=== PATIENT | male | born 1980 | race Caucasian/White ===

== ENCOUNTER 2023-10-03 07:34 | Emergency (ER) | payer OTHER, SELFPAY ==
[2023-10-03 07:40] VITALS: BP 119/83
--- NOTE | 2023-10-03 07:58 | ED.GENMED ---
History of Present Illness
General
Chief Complaint: Ear Problem
Source: patient
Exam Limitations: none
Time Seen by Provider: 10/03/23 07:45
History of Present Illness
History of Present Illness:
43-year-old otherwise healthy male presents complaining of right ear discomfort and swelling. He had it start about 10 days ago and it went away on its own his left ear started hurting but that went away however 3 to 4 days ago the right ear
started hurting and got more swollen and painful. He swims a lot. He denies a fever. He is not a diabetic. He states he had mastoiditis as a child. No other complaints at this time
Phy Exam
Physical Exam
Physical Exam:
General: Well-appearing male no acute respiratory distress
HEENT: Normocephalic atraumatic neck is supple no trismus or drooling posterior pharynx without erythema. Right external auditory canal erythematous and swollen mainly at the external meatus. As the canal gets closer to his tympanic membrane the
canal normalizes and TM is normal. The mastoid is nontender. There is mild adenopathy inferior to the right ear. The right ear itself is slightly swollen.
Heart: Regular rate and rhythm no murmurs
Lungs: Clear no wheeze or rales
Extremities: No cyanosis or edema
Course
Vital Signs
Initial and Last Documented VS:
Initial Vital Signs
Temp Pulse Resp BP Pulse Ox
97.7 F 85 16 119/83 98
10/03/23 07:40 10/03/23 07:40 10/03/23 07:40 10/03/23 07:40 10/03/23 07:40
Last Documented Vital Signs
Temp Pulse Resp BP Pulse Ox
97.7 F 85 16 119/83 98
10/03/23 07:40 10/03/23 07:40 10/03/23 07:40 10/03/23 07:40 10/03/23 07:40
MDM/Problems Addressed
Differential Diagnosis Includes:
Right ear pain. Consider external otitis versus cellulitis. No sign of otitis media. Clinically no concern for mastoiditis given lack of tenderness over the mastoid. There is a component of external otitis however the ear itself is slightly
swollen. Will cover with Cortisporin otic as well as Levaquin given his allergies. Stable for discharge
*Critical Care Note
Total Time (30-74mins, 75-104mins- exclusive of procedures): Not Applicable
ED Attending Note
-
Portions of this chart may have been created with voice recognition software.� Occasional wrong word or��sound alike� substitutions may have occurred due to the inherent limitations of voice recognition software.
Discharge Plan
Departure
Patient Disposition: Home (Routine Discharge)
Date of Disposition: 10/03/23
Time of Disposition: 08:03
Patient with high blood pressure during this ER visit?: No
Discharge Problem:
Acute Otitis Externa
Instructions: Outer Ear Infection (DC), Cellulitis (Skin Infection), Adult ED
Prescriptions:
New
bjirnorp-eirvgejjw-QR 3.5-10,000-1 mg/mL-unit/mL-% drops,suspension
4 drp otic (ear) Q6H 7 Days Qty: 10 0RF
levofloxacin 500 mg tablet
500 mg PO DAILY 7 Days Qty: 7 0RF
Activity Restrictions/Additional Instructions:
Use drops as directed. Use antibiotic as directed. Please return here for worsening symptoms otherwise follow-up with family doctor
Interventions
Interventions:
*Risk Screen - Suicide Last Done: 10/03/23 07:40
*General Assessment Last Done: 10/03/23 07:40
*Neglect/Abuse Screening Last Done: 10/03/23 07:40
ED- Fall Risk Assessment Last Done: 10/03/23 08:26
*ED COVID-19 Vaccine History Last Done: 10/03/23 08:22
*Nursing Disposition Last Done: 10/03/23 08:26
Discharge Date and Time
Discharge Date/Time: 10/03/23 08:36
Print Language: HEBREW
== END 2023-10-03 08:36 | disposition home or self-care (01) ==
LOC: EMR 07:34
PROVIDERS: EMERGENCY PHYSICIAN Student in an Organized Health Care Education/Training Program
DX: H60.91 Unspecified otitis externa, right ear (principal)
CPT/HCPCS: 99282

== ENCOUNTER 2024-04-17 09:05 | Emergency (ER) | payer OTHER, SELFPAY ==
[2024-04-17 09:07] VITALS: BP 100/72
[2024-04-17 10:03] VITALS: BMI 22.9
--- NOTE | 2024-04-17 10:22 | ED.GENMED ---
History of Present Illness
General
Chief Complaint: Headache
Source: patient
Exam Limitations: none
Time Seen by Provider: 04/17/24 10:01
Nursing documentation reviewed up to this point in time: agreed with
History of Present Illness
History of Present Illness:
44 y/o M with flu like symptoms x 3 days
started with fever, bodyaches, headache, back ache, vomiting and has had these symptoms for 3 days
he says his headache is global
was 9/10 the past 2 days and his temp was 103 t max, treated with tylenol/motrin fluctuating doses
has had a few episodes, most recent was yesterday
has been able to keep food down today for the first time
he went to urgent care ysterday but left before he was seen because of the wait.
today he decided to go back but actually feels better today than any other day
today is 6/10 headache
does have some mild back pain
no neck stiffness vision changed, abdominal pain, urinary symptoms, diarrhea, sor throat, cough
his had the flu A last week and now she has pneumonia
he was nto tested for flu but only covid today.
sent bcause they thought he could use blood work and a cat scan
Past History
Past History
ED Past Medical History: None
ED Past Surgical History: Appendectomy, Orthopedic and Urological
Social History
Tobacco: Non-smoker
Alcohol: None
Review of Systems
Review of Systems
Allergies reviewed?: Yes
All Other Systems: Not applicable
Phy Exam
Physical Exam
Physical Exam:
GENERAL: Alert , in no apparent distress, pt looks extremely well
EYE: pupils equal and reactive
NECK: Supple, non meningimsus
ENT: b/l TM s clear, normal pharynx no tonsillar hypertrophy or exudates
CARDIAC: Regular rate and rhythm, no edema
LUNGS: Clear breath sounds bilaterally, no acute respiratory distress, no wheezes/rales/rhonchi, no cough
ABDOMEN: Soft, without focal tenderness, no r/g, no cvat, normal bowel sounds
NEUROLOGICAL: Alert and oriented, no focal neuro deficits
SKIN: Warm and dry, skin intact.
MUSCULOSKELETAL: No edema, well perfused.
PSYCH: Normal and appropriate interaction.
Course
Orders/Labs/Results
Orders:
Orders
04/17/24 10:15
Influenza A+B Rapid Molecular Urgent
[facility] Source: Nasal Swab
Specimen Description:
04/17/24 10:21
Ibuprofen [Motrin] 800 mg PO NOW STA
04/17/24 10:23
COVID-19 Antigen Urgent
Source: Nasal Swab
04/17/24 11:23
0.9% Sodium Chloride 1000 ml [Nss] 1,000 ml IV BOLUS
04/17/24 11:29
CPK [Creatine Phosphokinase] Urgent
Complete Blood Count/With Diff Urgent
Comprehensive Metabolic Panel Urgent
Lyme Progressive Urgent
Monotest Urgent
Urinalysis Reflex To Culture Urgent
Date Specimen was Collected: 04/17/24
Time Specimen was Collected: 11:28
Abnormal Lab Results
04/17/24
11:29
MPV 10.9 H fL
(7.4-10.4)
AST 16 L U/L
(17-59)
Creatine Kinase 52 L U/L
(55-170)
Urine Ketones 1+ A
(Negative)
04/17/24 11:29
04/17/24 11:29
Vital Signs
Initial and Last Documented VS:
Initial Vital Signs
Temp Pulse Resp BP Pulse Ox
36.3 C 82 18 100/72 99
04/17/24 09:07 04/17/24 09:07 04/17/24 09:07 04/17/24 09:07 04/17/24 09:07
Last Documented Vital Signs
Temp Pulse Resp BP Pulse Ox
36.8 C 80 18 100/70 99
04/17/24 10:13 04/17/24 13:26 04/17/24 13:26 04/17/24 13:26 04/17/24 13:26
MDM/Problems Addressed
Differential Diagnosis Includes:
flu, covid, uri, uti
MDM/Problems Addressed:
44 y/o M
with flu last week, tested pos for flu A
pt says he started feeling achy with headache, fever to 103 3 days ago
using tylenol an dmotrin alternating
headache, lower back aches, fatigue are pt's symptoms
no sore throat, cough, rash, trouble breathing, abdominal pain, diarrhea, dysuria
he has vomited 2-3 times the past few days
able to keep food and liquids down today
went to UC yesterday because he felt bad but LWBS because he was waiting a while
now today felt much better but was still sent here for labs and ct scan though
he has moderate headache today
no neck stiffness
no fever
no vomiting
pt was intiially given motrin and tested for flu and covid which were neg
decided to check labs, urine, mono to see if any abnromatlities
very reassuring labs
feels a lot bettter after IVF
dc home
*Critical Care Note
Total Time (30-74mins, 75-104mins- exclusive of procedures): Not Applicable
ED Attending Note
-
Portions of this chart may have been created with voice recognition software.� Occasional wrong word or��sound alike� substitutions may have occurred due to the inherent limitations of voice recognition software.
Discharge Plan
Departure
Patient Disposition: Home (Routine Discharge)
Date of Disposition: 04/17/24
Time of Disposition: 13:01
Patient with high blood pressure during this ER visit?: No
Condition: Fair
Covid-19: Negative COVID-19
Discharge Problem:
Acute viral syndrome
Instructions: Viral Syndrome (DC)
Prescriptions:
No Action
kifwoktk-jppzssotu-ST 3.5-10,000-1 mg/mL-unit/mL-% drops,suspension
4 drp otic (ear) Q6H 7 Days Qty: 10 0RF
levofloxacin 500 mg tablet
500 mg PO DAILY 7 Days Qty: 7 0RF
Referrals:
UNKNOWN - PT DOES,NOT KNOW [Unknown Provider] -
Activity Restrictions/Additional Instructions:
YOUR SYMPTOMS ARE LIKELY DUE TO A VIRAL SYNDROME
YOU HAD REASSURING LABS, URINE, AND NEGATIVE FLU, COVID AND MONO
YOU WERE ALSO TESTED FOR LYME DISEASE
YOU WERE MILDLY DEHYDRATED AND GIVEN FLUIDS
TAKE TYLENOL/MOTRIN FOR HEADACHES/BODYACHES
RETURN FOR: RASH, NECK STIFFNESS, SEVERE SUDDEN WORST HEADACHE OF LIFE, VOMITING REPEATEDLY, COUGH ETC
Interventions
Interventions:
*Risk Screen - Suicide Last Done: 04/17/24 09:07
*General Assessment Last Done: 04/17/24 09:07
*Neglect/Abuse Screening Last Done: 04/17/24 09:07
ED- Fall Risk Assessment Last Done: 04/17/24 10:03
*ED COVID-19 Vaccine History Last Done: 04/17/24 10:03
*Nursing Disposition Last Done: 04/17/24 13:27
ED- Neurological Assessment Last Done: 04/17/24 10:03
ED- Pulmonary Assessment Last Done: 04/17/24 10:03
Discharge Date and Time
Discharge Date/Time: 04/17/24 13:28
Print Language: ANGOLAN
[2024-04-17] MEDS: MOTRIN 800 MG PO (10:26)
[2024-04-17 10:58] LABS: COVID-19 Antigen Negative (Negative)
[2024-04-17] MEDS: NSS 1000 IV (11:32)
[2024-04-17 11:52] LABS: % Basophils 0.6 % (0-2); % Immature Granulocytes 0.1 % (0-0.5); % Lymphocytes 21.9 % (20.5-51.1); % Monocytes 5.7 % (1.7-9.3); % Neutrophils 70.7 % (42.2-75.2); Absolute Eosinophils 0.1 10^3/uL (0-0.7); Absolute Lymphocytes 1.5 10^3/uL (1.2-3.4); Absolute Monocytes 0.4 10^3/uL (0.1-0.6); Absolute Neutrophils 4.8 10^3/uL (1.4-6.5); Hematocrit 39.7 % (39.0-52.0); Hemoglobin 13.5 g/dL (13.0-18.0); Mean Corpuscular Hgb 28.4 pg (27.0-31.0); Mean Corpuscular Volume 83.6 fL (80.0-94.0); Mean Platelet Volume 10.9 fL (7.4-10.4); Nucleated Red Blood Cells % 0 % (-); Platelet Count 177 10^3/uL (130-400); Red Blood Cell Count 4.75 10^6/uL (4.70-6.10); Red Cell Dist. Width 13.1 % (11.5-14.5); White Blood Cell Count 6.9 10^3/uL (4.8-10.8)
[2024-04-17 11:58] LABS: ALT (SGPT) 17 U/L (0-50); AST (SGOT) 16 U/L (17-59); Albumin 4.3 g/dl (3.5-5.0); Alkaline Phosphatase 58 U/L (38-126); Blood Urea Nitrogen 12 mg/dl (9-20); Calcium 8.9 mg/dl (8.4-10.2); Carbon Dioxide 27 mmol/L (22-30); Chloride 99 mmol/L (98-107); Creatine Phosphokinase 52 U/L (55-170); Estimated Creatinine Clearance > 125 ml/min; Glucose 91 mg/dl (70-99); Potassium 4.5 mmol/L (3.5-5.1); Sodium 135 mmol/L (135-145); Total Bilirubin 0.4 mg/dl (0.2-1.3); Total Protein 6.3 g/dl (6.3-8.2); eGFR > 60.00
[2024-04-17 12:07] LABS: Urine Albumin Negative (Neg - Trace); Urine Bilirubin Negative (Negative); Urine Character Clear (Clear); Urine Color Yellow; Urine Glucose Negative (Negative); Urine Ketone 1+ (Negative); Urine Leukocyte Negative (Negative); Urine Nitrite Negative (Negative); Urine Occult Blood Negative (Negative); Urine Urobilinogen Negative (Neg - 1+)
[2024-04-17 12:22] LABS: Monotest Negative (Negative)
[2024-04-17 13:26] VITALS: BP 100/70
[2024-04-19 16:17] LABS: Lyme Antibody Screen, EIA Negative (Negative)
== END 2024-04-17 13:28 | disposition home or self-care (01) ==
LOC: EMR 09:05
PROVIDERS: Physician Assistant; EMERGENCY PHYSICIAN Student in an Organized Health Care Education/Training Program; FAMILY PHYSICIAN Student in an Organized Health Care Education/Training Program
DX: B34.9 Viral infection, unspecified (principal); R51.9 Headache, unspecified; R11.10 Vomiting, unspecified; M54.9 Dorsalgia, unspecified; Z11.52 Encounter for screening for COVID-19; Z88.1 Allergy status to other antibiotic agents; Z88.0 Allergy status to penicillin; Z88.2 Allergy status to sulfonamides
CPT/HCPCS: 99284; 96360; 80053; 81003; 82550; 85025; 86308; 86618; 87502; 87811